=== PATIENT | female | born 1955 | race Two or more races ===

== ENCOUNTER 2016-10-21 15:50 | Inpatient (IN) | payer MEDICAID ==
[~2016-10-21] VITALS: Ht 149.9 cm; Wt 47.6 kg
[2016-10-21] MEDS ORDERED: IV SET PRIMARY 1 EA INFUS.SET MC ONE (16:05)
[2016-10-21] MEDS ORDERED: IV NS 0.9% 1,000 ML ONE (16:05)
[2016-10-21 16:23] LABS: BASOPHILS % (AUTO) 0.2 % (0.0-2.0); DIFF TOTAL % 100 %; EOSINOPHILS # (AUTO) 0.1 /CMM (0.0-0.7); EOSINOPHILS % (AUTO) 0.9 % (0.0-6.0); HEMATOCRIT 34 % (33-45); HEMOGLOBIN 11.4 g/dL (11.5-14.8); LYMPHOCYTES # (AUTO) 2.4 /CMM (0.8-4.8); LYMPHOCYTES % (AUTO) 43.9 % (20.0-44.0); MEAN CORPUSCULAR HEMOGLOBIN 31 PG (26.0-33.0); MEAN CORPUSCULAR HGB CONC 33 g/dl (31.0-36.0); MEAN CORPUSCULAR VOLUME 92 fL (82-100); MONOCYTES # (AUTO) 0.4 /CMM (0.1-1.30); MONOCYTES % (AUTO) 6.6 % (2.0-12.0); NEUTROPHILS # (AUTO) 2.7 /CMM (1.8-8.9); NEUTROPHILS % (AUTO) 48.4 % (43.0-81.0); PLATELET COUNT (AUTO) 313 /CMM (150-450); RED BLOOD CELL COUNT(AUTO) 3.74 MIL/uL (4.0-5.2); WHITE BLOOD COUNT (AUTO) 5.5 K/uL (4.3-11.0)
[2016-10-21] MEDS ORDERED: IV NS 0.9% 1,000 ML BAG IV ONE (16:30)
[2016-10-21 16:33] LABS: ANION GAP 8 (5-14); CALCIUM, SERUM 8.5 mg/dL (8.5-10.1); CARBON DIOXIDE 32 mmol/L (21-32); CHLORIDE 101 mmol/L (98-107); CREATININE 0.7 mg/dL (0.6-1.3); GFR 86 mL/min (>60); GLUCOSE 300 mg/dL (74-106); POTASSIUM 4.1 mmol/L (3.5-5.1); SODIUM SERUM 137 mmol/L (136-145); UREA NITROGEN, BLOOD 9 mg/dL (7-18)
[2016-10-21 16:37] LABS: INR 0.94 (0.87-1.13); PROTHROMBIN TIME 10.2 SECS (9.5-12.7)
[2016-10-21 16:44] LABS: LACTIC ACID 2.4 mmol/L (0.4-2.0)
[2016-10-21 16:47] LABS: ALANINE AMINOTRANSFERASE 32 U/L (12-78); ALBUMIN 3.4 g/dL (3.4-5.0); ASPARTATE AMINOTRANSFERASE 17 U/L (15-37); BILIRUBIN,DIRECT 0.1 mg/dL (0.0-0.2); BILIRUBIN,TOTAL 0.4 mg/dL (0.2-1.0); INDIRECT BILIRUBIN 0.3 mg/dL (0.0-1.1); TOTAL PROTEIN, SERUM 6.6 g/dL (6.4-8.2)
[2016-10-21] MEDS ORDERED: METF500T4 PO (16:54)
[2016-10-21] MEDS ORDERED: BP MEDICATIONS (16:54)
[2016-10-21] MEDS ORDERED: GLYB2.5T4 PO (16:54)
[2016-10-21 17:14] LABS: *LACTIC ACID REFLEX FLAG YES
[2016-10-21 17:17] LABS: KETONES,URINE NEGATIVE (NEGATIVE); LEUKOCYTE ESTERASE ,URINE NEGATIVE (NEGATIVE)
[2016-10-21 17:22] LABS: ADD UA MICROSCOPIC YES
[2016-10-21 18:05] LABS: ADD URINE CULTURE NO; MUCUS,URINE RARE /LPF (None Seen); RBC,URINE 0-2 /HPF (0-2); WBC,URINE 0-2 /HPF (0-3)
[2016-10-21] MEDS ORDERED: CEFTRIAXONE 1GM BAG (ER ONLY) 50 ML IV ONE (18:21)
[2016-10-21] MEDS ORDERED: IV SET PRIMARY PUMP SET 1 EA INFUS.SET MC ONE ×2 (18:21→19:40)
[2016-10-21 18:30] VITALS: BP 119/63
[2016-10-21] MEDS ORDERED: CEFTRIAXONE 1GM BAG (ER ONLY) 1 GM/50 ML PIGGYBACK IV ONE (18:30)
[2016-10-21] MEDS ORDERED: MAGNESIUM HYDROXIDE 30 ML UDC PO PRN (19:00)
[2016-10-21] MEDS ORDERED: ZOLPIDEM TARTRATE 5 MG TABLET PO PRN (19:00)
[2016-10-21] MEDS ORDERED: DEXTROSE 50%-WATER 50 ML DISP.SYRIN IV PRN (19:00)
[2016-10-21] MEDS ORDERED: ONDANSETRON HCL/PF 4 MG/2 ML VIAL IVP PRN (19:00)
[2016-10-21] MEDS ORDERED: ACETAMINOPHEN 325 MG TABLET PO PRN (19:00)
[2016-10-21] MEDS ORDERED: MAG HYDROX/AL HYDROX/SIMETH 30 ML UDC PO PRN (19:00)
[2016-10-21] MEDS ORDERED: Z GUARD REMEDY 2 OZ OINT TP PRN (19:00)
[2016-10-21] MEDS: ENOXAPARIN SODIUM 40 MG/0.4 ML DISP.SYRIN SQ SCH (19:50)
[2016-10-21] MEDS: ASPIRIN 325 MG TABLET PO SCH (19:50)
[2016-10-21] MEDS: IV NS 0.9% 1,000 ML IV PRN (19:51)
[2016-10-21 20:00] VITALS: BP 128/74
[2016-10-21] MEDS: BLOOD SUGAR DIAGNOSTIC 1 EACH STRIP VI SCH (21:18)
[2016-10-21] MEDS: *INSULIN REGULAR(HUMULIN R)HUM 100 UNIT/ML VIAL SQ PRN (21:20)
[2016-10-21] MEDS: HYDROCODONE/APAP 5/325MG 1 EACH TABLET PO PRN (21:23)
[2016-10-22] VITALS: BP 136/74
[2016-10-22 04:00] VITALS: BP 142/77
[2016-10-22 07:04] LABS: BASOPHILS % (AUTO) 0.4 % (0.0-2.0); DIFF TOTAL % 100 %; EOSINOPHILS # (AUTO) 0.1 /CMM (0.0-0.7); EOSINOPHILS % (AUTO) 1.2 % (0.0-6.0); HEMATOCRIT 35 % (33-45); HEMOGLOBIN 11.7 g/dL (11.5-14.8); LYMPHOCYTES # (AUTO) 2.6 /CMM (0.8-4.8); LYMPHOCYTES % (AUTO) 50.9 % (20.0-44.0); MEAN CORPUSCULAR HEMOGLOBIN 31 PG (26.0-33.0); MEAN CORPUSCULAR HGB CONC 33 g/dl (31.0-36.0); MEAN CORPUSCULAR VOLUME 92 fL (82-100); MONOCYTES # (AUTO) 0.3 /CMM (0.1-1.30); MONOCYTES % (AUTO) 6.1 % (2.0-12.0); NEUTROPHILS # (AUTO) 2.1 /CMM (1.8-8.9); NEUTROPHILS % (AUTO) 41.4 % (43.0-81.0); PLATELET COUNT (AUTO) 282 /CMM (150-450); RED BLOOD CELL COUNT(AUTO) 3.82 MIL/uL (4.0-5.2); WHITE BLOOD COUNT (AUTO) 5.2 K/uL (4.3-11.0)
[2016-10-22] MEDS: PANTOPRAZOLE 40 MG TABLET.DR PO SCH (07:23)
[2016-10-22] MEDS: INSULIN REGULAR, HUMAN 100 UNIT/ML 3 ML VIAL SQ PRN ×3 (07:24→18:01)
[2016-10-22] MEDS: BLOOD SUGAR DIAGNOSTIC 1 EACH STRIP VI SCH ×4 (07:25→21:17)
[2016-10-22 08:00] VITALS: BP 148/66
[2016-10-22] MEDS: ASPIRIN 325 MG TABLET PO SCH (08:13)
[2016-10-22] MEDS: IV NS 0.9% 1,000 ML IV PRN (08:43)
[2016-10-22 10:14] LABS: CALCIUM, SERUM 8.6 mg/dL (8.5-10.1); CREATININE 0.5 mg/dL (0.6-1.3); PHOSPHORUS 3.6 mg/dL (2.5-4.9); POTASSIUM 4.2 mmol/L (3.5-5.1)
[2016-10-22 12:00] VITALS: BP 115/71
[2016-10-22 16:00] VITALS: BP 166/74
[2016-10-22 20:00] VITALS: BP 153/58
[2016-10-22] MEDS: ENOXAPARIN SODIUM 40 MG/0.4 ML DISP.SYRIN SQ SCH (20:31)
[2016-10-22] MEDS: *INSULIN REGULAR(HUMULIN R)HUM 100 UNIT/ML VIAL SQ PRN (21:18)
[2016-10-23] VITALS: BP 162/65
[2016-10-23 04:00] VITALS: BP_SYST 154; BP_SYST 157; BP_DIAS 64
[2016-10-23] MEDS: BLOOD SUGAR DIAGNOSTIC 1 EACH STRIP VI SCH ×2 (06:57→11:42)
[2016-10-23] MEDS: PANTOPRAZOLE 40 MG TABLET.DR PO SCH (07:21)
[2016-10-23] MEDS: HYDROCODONE/APAP 5/325MG 1 EACH TABLET PO PRN (07:22)
[2016-10-23 08:00] VITALS: BP 180/81
[2016-10-23] MEDS: ASPIRIN 325 MG TABLET PO SCH (08:15)
[2016-10-23] MEDS ORDERED: CLONIDINE HCL 0.1 MG TABLET PO PRN (10:30)
[2016-10-23] MEDS: INSULIN REGULAR, HUMAN 100 UNIT/ML 3 ML VIAL SQ PRN (11:41)
[2016-10-23 12:00] VITALS: BP 159/69
== END 2016-10-23 14:11 | disposition home or self-care (01) | DRG 422 ==
LOC: ER 15:52 → TELE1 16:05 → MEDSG1 10-22 13:43
PROVIDERS: ADMIT Internal Medicine; ATTEND Internal Medicine
DX: E86.0 Dehydration (principal); E87.0 Hyperosmolality and hypernatremia; E11.65 Type 2 diabetes mellitus with hyperglycemia; E78.5 Hyperlipidemia, unspecified; F17.200 Nicotine dependence, unspecified, uncomplicated; F41.9 Anxiety disorder, unspecified; Z86.73 Personal history of transient ischemic attack (TIA), and cerebral infarction without residual deficits; K59.00 Constipation, unspecified; I10 Essential (primary) hypertension
CPT/HCPCS: 36415; 70450-TC; 71010-TC; 80048-TC; 80061-TC; 80076-TC; 81000-TC; 82550-TC; 82962-TC; 83605-TC; 83735-TC; 84100-TC; 84443-TC; 84484-TC; 85025-TC; 85730-TC; 87081-TC; 87400; 92611-TC; 93307-TC; 97001-TC; A4606; J0696; J1650; J1815; J7030; Z7610

== ENCOUNTER 2017-03-12 15:02 | Emergency (ER) | payer MEDICAID, OTHER ==
[~2017-03-12] VITALS: Ht 162.6 cm; Wt 65.8 kg
[~2017-03-12 15:02] MED LIST: BP MEDICATIONS; GLYB2.5T4 PO; METF500T4 PO
--- NOTE | 2017-03-12 15:16 | NUR ---
PT TO ED ROOM 08. [id number]: OK TO BOOK. C/O HEADACHE, HIGH BLOOD PRESSURE. A/A/O. SIDE RAISL UP. HOB ELEVATED. CONNECTED TO MONITOR. CHP AT BEDSIDE. AWAITING EVALUATION BY ER PROVIDER.
--- NOTE | 2017-03-12 15:24 | NUR ---
DR DANIEL AT BEDSIDE FOR EVAL
--- NOTE | 2017-03-12 15:30 | NUR ---
CODE STROKE CALLED FOR ER BED 8
--- NOTE | 2017-03-12 15:31 | NUR ---
CALLED [facility] TELESTROKE HOTLINE. DR ARZATE WAS PAGED.
--- NOTE | 2017-03-12 15:46 | NUR ---
PATIENT RETURNED FROM CT .
[2017-03-12] MEDS ORDERED: LABETALOL HCL (100MG) 100 MG TABLET ONE (15:53)
--- NOTE | 2017-03-12 15:53 | NUR ---
PT REFUSED ACCU CHECK AND BLOOD DRAW. DR DANIEL WAS MADE AWARE.
[2017-03-12] MEDS ORDERED: LABETALOL HCL (100MG) 100 MG TABLET PO ONE (16:00)
--- NOTE | 2017-03-12 17:16 | NUR ---
Patient discharged to [facility] in stable condition. Written and verbal after care instructions given. Patient verbalizes understanding of instruction. OK TO BOOK.
[2017-03-12 17:17] VITALS: BP 155/86
== END 2017-03-12 17:18 ==
LOC: ER 15:04
DX: R53.1 Weakness (principal); I10 Essential (primary) hypertension; E11.9 Type 2 diabetes mellitus without complications; F17.200 Nicotine dependence, unspecified, uncomplicated; Z86.73 Personal history of transient ischemic attack (TIA), and cerebral infarction without residual deficits
CPT/HCPCS: 70450; 71010; 93005; 99284; A4606; Z7610

== ENCOUNTER 2019-04-08 10:48 | Emergency (ER) | payer OTHER ==
[~2019-04-08] VITALS: Ht 157.5 cm; Wt 66.2 kg
[~2019-04-08 10:48] MED LIST changes: +METF-440 PO; -METF500T4 PO
--- NOTE | 2019-04-08 10:55 | NUR ---
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 TO ER BED 4, HOOKED TO MONITOR, PROVIDED W WARM BLANKET, NOT IN DISTRESS, AWAITING MD ESPINOZA
--- NOTE | 2019-04-08 11:05 | NUR ---
DR MONREAL AT BEDSIDE FOR EVAL.
[2019-04-08 11:21] LABS: BASOPHILS % (AUTO) 0.4 % (0.0-2.0); EOSINOPHILS % (AUTO) 0.3 % (0.0-6.0); HEMATOCRIT 38 % (33-45); HEMOGLOBIN 13.1 g/dL (11.5-14.8); LYMPHOCYTES # (AUTO) 1.8 /CMM (0.8-4.8); LYMPHOCYTES % (AUTO) 19.8 % (20.0-44.0); MEAN CORPUSCULAR HGB CONC 34 g/dl (31.0-36.0); MEAN CORPUSCULAR VOLUME 93 fL (82-100); MONOCYTES # (AUTO) 0.4 /CMM (0.1-1.30); MONOCYTES % (AUTO) 4.8 % (2.0-12.0); NEUTROPHILS # (AUTO) 6.7 /CMM (1.8-8.9); NEUTROPHILS % (AUTO) 74.7 % (43.0-81.0); PLATELET COUNT (AUTO) 357 /CMM (150-450); RED BLOOD CELL COUNT(AUTO) 4.12 MIL/uL (4.0-5.2)
[2019-04-08 11:28] LABS: CALCIUM, SERUM 9.5 mg/dL (8.5-10.1); CARBON DIOXIDE 32 mmol/L (21-32); CHLORIDE 101 mmol/L (98-107); CREATININE 0.7 mg/dL (0.6-1.3); GLUCOSE 237 mg/dL (74-106); POTASSIUM 4.5 mmol/L (3.5-5.1); SODIUM SERUM 139 mmol/L (136-145); UREA NITROGEN, BLOOD 17 mg/dL (7-18)
[2019-04-08 11:34] LABS: ALANINE AMINOTRANSFERASE 41 U/L (12-78); ALKALINE PHOSPHATASE 54 U/L (46-116); ASPARTATE AMINOTRANSFERASE 27 U/L (15-37); BILIRUBIN,DIRECT 0.1 mg/dL (0.0-0.2); BILIRUBIN,TOTAL 0.5 mg/dL (0.2-1.0); TOTAL PROTEIN, SERUM 7.7 g/dL (6.4-8.2)
--- NOTE | 2019-04-08 12:20 | NUR ---
Patient discharged in custody in stable condition. Written and verbal after care instructions given. Patient verbalizes understanding of instruction.
[2019-04-08 12:21] VITALS: BP 199/98
== END 2019-04-08 12:22 ==
LOC: ER 10:48
DX: R07.89 Other chest pain (principal); I10 Essential (primary) hypertension; E11.9 Type 2 diabetes mellitus without complications; F17.200 Nicotine dependence, unspecified, uncomplicated; Z86.73 Personal history of transient ischemic attack (TIA), and cerebral infarction without residual deficits; Z60.2 Problems related to living alone
CPT/HCPCS: 36415; 71045-TC; 80048-TC; 80076-TC; 84484-TC; 85025-TC